=== PATIENT | female | born 1960 | race Caucasian/White ===

== ENCOUNTER 2020-08-26 08:14 | Day surgery (SDC) | payer BC ==
[~2020-08-26] VITALS: Ht 167.6 cm; Wt 80.0 kg
[~2020-08-26 08:14] MED LIST: AFLURIA QU IM; ALTACE5 MG PO; LABETALOL HCL100 MG PO
--- NOTE | 2020-08-26 10:08 | NUR ---
08/26/20 Christophe8 [place] Martinez 1002 PATIENT ARRIVES TO PACU AWAKE BUT DROWSY. DENIES PAIN OR NAUSEA. RESP EVEN AND UNLABORED. ROOM AIR SATS >95%. PASSING GAS.
--- NOTE | 2020-08-29 08:12 | OR ---
[facility] [address] [place], [place] [address] Signed DATE OF OPERATION: 08/26/2020 SURGEON: Tomas Israel MD PREOPERATIVE DIAGNOSIS: Colon surveillance. POSTOPERATIVE DIAGNOSIS: Polyps x3. PROCEDURES: Total colonoscopy to cecum with cold snare polypectomy x1 and cold morcellation polypectomy x2. ANESTHESIA: Intravenous sedation, fentanyl 100 mcg and Versed 5 mg. INDICATIONS: This 59-year-old white woman is a patient Dr. Spann and known to me from the past. She had colonoscopy by me in 2008, which was normal. She is symptom-free and has no family history of colon cancer. She is admitted to undergo surveillance colonoscopy, understand the risks of bleeding, infection, and perforation. FINDINGS: The prep was good. Complete colonoscopy was undertaken of the cecum without question. She had a small polyp of the right colon one of the transverse and a moderate-sized slightly pedunculated polyp of the sigmoid. All were excised completely. There were no other findings of concern. DESCRIPTION OF PROCEDURE: The patient was brought to the endoscopy suite and placed in lateral decubitus position given intravenous sedation to the point of slurred speech and nystagmus. Digital rectal examination was normal. An Olympus video colonoscope was passed into the rectum and manipulated throughout the colon, ultimately intubating the cecum itself. Careful withdrawal of scope was undertaken showing a small sessile polyp of the proximal ascending colon. This was excised with cold morcellation technique. Further withdrawal of the scope, identified a polyp in the mid transverse colon, which was rather small and subtle. It too was excised with cold morcellation technique completely. Further withdrawal of scope showed Electronically Signed By: TOMAS ISRAEL MD 08/29/20 0812 PATIENT NAME: OTTO GOLDMAN OPERATIVE REPORT DATE OF : 58 REPORT #: [id number] PHYSICIAN: TOMAS ISRAEL MD PCP: LEONEL SPANN DO REPORT IS CONFIDENTIAL AND NOT TO BE RELEASED WITHOUT AUTHORIZATION [facility] [address] [place], [place] [address] Signed no abnormality until approximately 15 cm from the anal verge, where a more obvious somewhat pedunculated polyp was noted at about 15 cm. This was excised with cold snare technique without problem. Additional biopsies were taken of the base of the polyp. There was no untoward bleeding. Further withdrawal of retroflexed view, which was accomplished without problem. Retroflexed view was normal. The scope was removed. The patient was taken to the recovery room in good condition. CONCLUDING DIAGNOSIS: Polyps x3. PLAN: Recommend repeat colonoscopy in 3 years or sooner if symptoms should occur. She will return to the ongoing care of Dr. Spann. I will review her pathology report to assure no adverse findings on the pathology examination. MD DECLAN Lewis/MARYANN /[id number] Copies: ~ Electronically Signed By: TOMAS ISRAEL MD 08/29/20 0812 PATIENT NAME: OTTO GOLDMAN OPERATIVE REPORT DATE OF : 58 REPORT #: [id number] PHYSICIAN: TOMAS ISRAEL MD PCP: LEONEL SPANN DO REPORT IS CONFIDENTIAL AND NOT TO BE RELEASED WITHOUT AUTHORIZATION
--- NOTE | 2020-08-30 17:17 | PATH ---
[facility] [address] [place], [place] [address] Signed SPECIMEN(S): A ASCENDING POLYP SPECIMEN(S): B TRANSVERSE POLYP SPECIMEN(S): C COLON POLYP AT 15 CM SPECIMEN SOURCE: A. ASCENDING POLYP B. TRANSVERSE POLYP C. COLON POLYP AT 15 CM CLINICAL HISTORY: Preop: Screening. Postop: Polyps x3. MICROSCOPIC DESCRIPTION: Histologic sections of all submitted blocks are examined by light microscopy. These findings, together with the gross examination, support the pathologic diagnosis. FINAL PATHOLOGIC DIAGNOSIS: A. Colon, ascending, polyp, polypectomy: - Fragments of hyperplastic polyp. - Negative for dysplasia or malignancy. B. Colon, transverse, polyp, polypectomy: - Fragments of hyperplastic polyp. - Negative for dysplasia or malignancy. C. Colon, polyp at 15 cm, polypectomy: - Tubular adenoma. - Negative for high-grade dysplasia or malignancy. NAL:cml:C2NR GROSS DESCRIPTION: Three specimens are received in three containers, labeled "Donna Goldman." A. The specimen, labeled "Erick Goldmanet, #1," and designated on the requisition "ascending polyp," is received in formalin and consists of three calvert soft tissue fragment(s) that measure 0.1-0.3 cm in greatest dimension. The specimen is entirely submitted in cassette (A1). B. The specimen, labeled "Erick Goldmanet, #2," and designated on the requisition "transverse polyp," is received in formalin and consists of two calvert soft tissue fragment(s) that measure 0.3 and 0.4 cm in greatest dimension. The specimen is entirely submitted in cassette (B1). C. The specimen, labeled "Souleymane Donna, #3," and designated on the requisition "colon polyp at 15 cm," is received in formalin and consists of one calvert soft tissue fragment that measures 0.5 cm in PATIENT NAME: DONNA GOLDMAN PATHOLOGY DATE OF : 58 REPORT #: [id number] PHYSICIAN: TONYA PATHOLOGY PCP: LEOENL SPANN DO REPORT IS CONFIDENTIAL AND NOT TO BE RELEASED WITHOUT AUTHORIZATION [facility] [address] [place], [place] [address] Signed greatest dimension. The specimen is entirely submitted in cassette (C1). FB (under the direct supervision of a pathologist) The Gross Description was prepared using a voice recognition system. The report was reviewed for accuracy; however, sound-alike word errors, addition and/or deletions may occur. If there is any question about this report, please contact Client Services. PERFORMING LABORATORY: The technical component was performed by [employer], [address] [place] [id number] (Production Repairer: Jing Frias MD; CLIA# [id number]). Professional interpretation was performed by [employer] [facility], [address] [address] (CLIA# [id number]). Diagnostician: Roselia Owens MD Pathologist Electronically Signed 08/30/2020 Copies: ~ PATIENT NAME: DONNA GOLDMAN PATHOLOGY DATE OF : 58 REPORT #: [id number] PHYSICIAN: TONYA PATHOLOGY PCP: LEONEL SPANN DO REPORT IS CONFIDENTIAL AND NOT TO BE RELEASED WITHOUT AUTHORIZATION
== END 2020-08-26 10:55 | disposition home or self-care (01) ==
LOC: OPS 08:14 → DS 08:17 → OPS 09:30
PROVIDERS: ATTEND Surgery
PROC: 0DBL8ZX Excision of Transverse Colon, Via Natural or Artificial Opening Endoscopic, Diagnostic (ICD-10-PCS; 2020-08-26)
PROC: 0DBE8ZX Excision of Large Intestine, Via Natural or Artificial Opening Endoscopic, Diagnostic (ICD-10-PCS; 2020-08-26)
PROC: 0DBK8ZX Excision of Ascending Colon, Via Natural or Artificial Opening Endoscopic, Diagnostic (ICD-10-PCS; principal; 2020-08-26 09:30)
DX: Z12.11 Encounter for screening for malignant neoplasm of colon (principal); D12.6 Benign neoplasm of colon, unspecified; K63.5 Polyp of colon; I10 Essential (primary) hypertension; L82.1 Other seborrheic keratosis; Z78.0 Asymptomatic menopausal state; Z79.899 Other long term (current) drug therapy
CPT/HCPCS: 99153; G0500; J2250; J2405; J3010; J7121

== ENCOUNTER 2020-12-22 07:00 | Day surgery (SDC) | payer BC ==
[~2020-12-22] VITALS: Ht 172.7 cm; Wt 79.5 kg
--- NOTE | 2020-12-22 09:57 | NUR ---
12/22/20 0957 Melanie Spicer 0949- PT TO PACU IN SF POSITION. EYES OPEN AND DROWSY. BREATHING EASY AND UNLABORED. SPO2 >95% ON 6 L O2 VIA SIMPLE MASK. PT DENIES PAIN OR NAUSEA. 0956- PT REMAINS AWAKE, ASKING QUESTIONS APPROPRIATELY. BREATHING EASY AND UNLABORED. SPO2 >95% ON 6 L O2 VIA SIMPLE MASK. O2 TITRATED DOWN TO ROOM AIR.
[2020-12-22] MEDS ORDERED: IBUPROFEN600 MG PO (10:06)
[2020-12-22] MEDS ORDERED: ACETAMINOPHEN500 MG PO (10:06)
[2020-12-22] MEDS ORDERED: OXYCODON-ACETA1 EAC2 PO (10:06)
--- NOTE | 2020-12-22 11:42 | OR ---
[facility] [address] [place], [place] [address] Signed DATE OF OPERATION: 12/22/2020 SURGEON: Tomas Israel MD PREOPERATIVE DIAGNOSES: 1. 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 2. Pigmented lesion on upper posterior midline torso of uncertain behavior. POSTOPERATIVE DIAGNOSES: 1. 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 2. Pigmented lesion on upper posterior midline torso of uncertain behavior. PROCEDURES: 1. Excision of upper posterior thorax skin lesion 3.6 cm excision size. 2. Excision of left lower extremity melanoma in situ 6.0 cm excision size. ANESTHESIA: LMAC; Maurice Gibson CRNA, and local 0.25% Marcaine with epinephrine 10 mL. INDICATION: This 60-year-old white woman is a patient of Srinath Spann. She had three small benign nodules of her scalp that were long-standing and increasing in size and somewhat bothersome to her. They were excised without problem and found to be benign intradermal melanocytic nevus. Her daughter, who is a newly graduated nurse had noticed a blandly pigmented lesion of her left lower thigh in the lateral aspect superior and lateral to the patella. Incisional biopsy was taken concurrently to one of the scalp lesion excision episodes in the office and found to have melanoma in situ. The patient has no family history of melanoma and no prior history of cancer of any sort. She has noticed also a blandly pigmented lesion in the interscapular area posteriorly in the thorax. She is admitted at this time to undergo definitive excision of the left thigh melanoma in situ as well as the posterior thoracic pigmented skin lesion of unknown etiology. She understands the risks of bleeding, infection, cosmetic deformity, and need for additional treatment should a deeper depth of the lesion be identified on melanoma in situ. Understands this, she wished to proceed. FINDINGS: Operation was taken in the right lateral position. Deep intravenous sedation was used and local anesthetic administered with good effect. Excision of the posterior thoracic and skin lesion was excised full thickness with accompanying associated fat, measured Electronically Signed By: TOMAS ISRAEL MD 12/22/20 1142 PATIENT NAME: OTTO GOLDMAN OPERATIVE REPORT DATE OF : 58 REPORT #: [id number] PHYSICIAN: TOMAS ISRAEL MD PCP: SRINATH SPANN DO REPORT IS CONFIDENTIAL AND NOT TO BE RELEASED WITHOUT AUTHORIZATION [facility] [address] [place], [place] [address] Signed 3.5 cm in length. It was closed in layers. The thigh lesion, proven as melanoma in situ was widely excised and deeply down to the investing fascia of the muscle compartment with a 1.5 cm margin throughout. The length of the excision was 6 cm in total. Closure was without problem. DESCRIPTION OF PROCEDURE: The patient was brought to the operating room and given intravenous sedation and positioned in the right lateral decubitus position (left side up). The left leg lesion with melanoma in situ was prepared with chlorhexidine solution as was the interscapular area. Both areas were sterilely draped. Attention was turned towards the unknown lesion first. Local anesthetic of 0.25% Marcaine with epinephrine injected locally in a field block configuration. An elliptical excision was undertaken vertically oriented based on skin line tension. Dissection was carried through the deep and thick dermis down to subcutaneous fat and widely excised. Electrocautery was used for hemostasis. The wound was closed in layers with interrupted 2-0 Vicryl and a running subcuticular 3-0 Vicryl, Steri-Strips were applied as was the Acticoat dressing. Attention was turned towards the lesion of the left thigh. Again, a blunt field block was undertaken with Marcaine anesthetic and measured margin of at least 2 cm from any pigmented area designated and excised at the 1.5 cm level. This was taken down to the muscular fascia compartment full-thickness with accompanying subcutaneous fat. Electrocautery was used for hemostasis. The inferior flap area was freed and the edges were easily approximated with interrupted 2-0 Vicryl in deep dermal layer and subcutaneous layer in a running subcuticular 3-0 Vicryl for the skin. Steri-Strips were applied as was the Acticoat dressing. The specimen was marked with silk sutures for orientation. She was returned to the supine position, allowed to emerge from sedation and taken to the recovery room in good condition. BLOOD LOSS: Minimal. COMPLICATIONS: None. Tomas Israel MD Electronically Signed By: TOMAS ISRAEL MD 12/22/20 1142 PATIENT NAME: OTTO GOLDMAN OPERATIVE REPORT DATE OF : 58 REPORT #: [id number] PHYSICIAN: TOMAS ISRAEL MD PCP: SRINATH SPANN DO REPORT IS CONFIDENTIAL AND NOT TO BE RELEASED WITHOUT AUTHORIZATION [address] [address] Signed /MARYANN /[id number] cc: Srinath Spann DO Copies: SRINATH SPANN DO ~ Electronically Signed By: TOMAS ISRAEL MD 12/22/20 1142 PATIENT NAME: OTTO GOLDMAN OPERATIVE REPORT DATE OF : 58 REPORT #: [id number] PHYSICIAN: TOMAS ISRAEL MD PCP: SRINATH SPANN DO REPORT IS CONFIDENTIAL AND NOT TO BE RELEASED WITHOUT AUTHORIZATION
--- NOTE | 2020-12-23 15:57 | PATH ---
[facility] [address] [place], [place] [address] Signed SPECIMEN(S): A POSTERIOR THORAX SPECIMEN(S): B SUPRAPATELLAR SPECIMEN SOURCE: A. POSTERIOR THORAX B. SUPRAPATELLAR CLINICAL HISTORY: Leg left and back skin lesion FINAL PATHOLOGIC DIAGNOSIS: A. Skin, posterior thorax, excision: - Seborrheic keratosis. B. Skin, suprapatellar, excision: - Melanoma in situ, excised. - Distance from closest margin: 4 mm, 3 o'clock margin (see gross description). - Biopsy site changes. BRP:cml:C1NR MICROSCOPIC EXAMINATION: Histologic sections of all submitted blocks are examined by light microscopy. These findings, together with the gross examination, support the pathologic diagnosis. GROSS DESCRIPTION: Two specimens are received in two containers, labeled "JJ." A. The specimen, labeled "JJ, posterior thorax, pigmented skin lesion," is received in formalin and consists of one unoriented skin ellipse that measures 3.0 x 1.7 x 1.0 cm. The skin surface shows brown-calvert, irregular colored and irregular shaped papule that measures 1.2 x 1.0 cm. The papule is 0.3 cm from the nearest surgical margin. Specimen is inked and serial section. Specimen is entirely and the potential is submitted in three cassettes (A1-A3). B. The specimen, labeled "JJ, melanoma in situ, suprapatellar area," is received in formalin and consists of skin ellipse that measures 5.0 x 2.5 x 1.5 cm. The skin surface shows irregular shaped, irregular colored brown-calvert macule that measures 1.6 x 1.1 cm. The macule is 0.5 cm from the nearest surgical margin. Specimen is oriented: Short stitch-superior, long stitch-anterior. They are PATIENT NAME: OTTO GOLDMAN PATHOLOGY DATE OF : 58 REPORT #: [id number] PHYSICIAN: TONYA PATHOLOGY PCP: LEONEL SPANN DO REPORT IS CONFIDENTIAL AND NOT TO BE RELEASED WITHOUT AUTHORIZATION [facility] [address] [place], [place] [address] Signed arbitrarily designated as: Long stitch-12 o'clock, short stitch-3 o'clock. Specimen is inked from 12 to 6 o'clock-blue, six to 12 o'clock-red. Specimen is serial sectioned and upon sectioning macule is less than 0.1 cm in thickness. Specimen is sequentially and entirely submitted from 12 o'clock to 6 o'clock in nine cassettes. Cassette summary: (B1-B5) 12 o'clock half (B6-B9) 6 o'clock half JS (under the direct supervision of a pathologist) The Gross Description was prepared using a voice recognition system. The report was reviewed for accuracy; however, sound-alike word errors, addition and/or deletions may occur. If there is any question about this report, please contact Client Services. PERFORMING LABORATORY: The technical component was performed by [employer], [address] [place] [phone] (Event Marketing Coordinator: Jing Frias MD; CLIA# [id number]). Professional interpretation was performed by [employer], [facility], [address] [place] [address] (CLIA# [id number]). Diagnostician: Narciso Manriquez MD Pathologist Electronically Signed 12/23/2020 Copies: ~ PATIENT NAME: OTTO GOLDMAN PATHOLOGY DATE OF : 58 REPORT #: [id number] PHYSICIAN: TONYA VELÁSQUEZ PCP: LEONEL SPANN DO REPORT IS CONFIDENTIAL AND NOT TO BE RELEASED WITHOUT AUTHORIZATION
== END 2020-12-22 10:30 | disposition home or self-care (01) ==
LOC: DS 07:00 → OPS 07:00 → DS 08:15 → OPS 10:30
PROVIDERS: ATTEND Surgery
PROC: 0HQ6XZZ Repair Back Skin, External Approach (ICD-10-PCS; 2020-12-22)
PROC: 0HBJXZZ Excision of Left Upper Leg Skin, External Approach (ICD-10-PCS; 2020-12-22)
PROC: 0HQJXZZ Repair Left Upper Leg Skin, External Approach (ICD-10-PCS; 2020-12-22)
PROC: 0HB6XZZ Excision of Back Skin, External Approach (ICD-10-PCS; principal; 2020-12-22 08:15)
DX: D03.72 Melanoma in situ of left lower limb, including hip (principal); L82.1 Other seborrheic keratosis; D23.9 Other benign neoplasm of skin, unspecified; I10 Essential (primary) hypertension; Z78.0 Asymptomatic menopausal state
CPT/HCPCS: 00400; J0690; J1100; J1885; J2001; J2405; J2704; J3010; J7121

== ENCOUNTER 2021-02-15 06:00 | Day surgery (SDC) | payer BC ==
[~2021-02-15] VITALS: Ht 172.7 cm; Wt 79.5 kg
[~2021-02-15 06:00] MED LIST changes: +ACETAMINOPHEN500 MG PO; +IBUPROFEN600 MG PO; +OXYCODON-ACETA1 EAC2 PO
--- NOTE | 2021-02-15 08:50 | NUR ---
PT TAKEN TO SURGERY, EDILMA REMAINED IN RM. ALL QUESTIONS ASKED ANSWERED GAVE BLESSING, WILL FOLLOW
--- NOTE | 2021-02-15 09:15 | NUR ---
02/15/21 0915 KELLY GONZALEZ - 0906-PATIENT ARRIVED TO PACU, ORAL AIRWAY IN PLACE. PATIENT NOT AROUSABLE , DOES NOT RESPOND TO VERBAL STIMULI. STERI STRIPS AND BANDAIDS CLEAN, DRY AND INTACT. PATIENT ON 6L O2 AT 100%. HULL PATENT AND DRAINING.
--- NOTE | 2021-02-15 09:59 | NUR ---
PT IS BACK TO DS FROM PACU. SHE IS REPORTING MINIMAL PAIN, STATING THAT THE WARMTH FROM THE PEDRO HUGGER IS HELPING WITH THE DISCOMFORT. SHE IS SLIGHTLY TEARFUL, IS AT THE BEDSIDE. CALL LIGHT WITHIN REACH. WATER ON BEDSIDE TABLE, PT IS EDUCATED TO START WITH SMALL SIPS OF WATER WHEN READY. NO ADDITIONAL NEEDS AT THIS TIME.
[2021-02-15] MEDS ORDERED: PERCOCET 5-3251 EACH PO (10:17)
[2021-02-15] MEDS ORDERED: IBUPROFEN800 MG PO (10:18)
[2021-02-15] MEDS ORDERED: ONDANSETRON ODT8 MG PO (10:18)
--- NOTE | 2021-02-15 11:33 | NUR ---
LE 1115: PT REPORTS FEELING BETTER, BUT STILL HAVING SOME PAIN/DISCOMFORT IN HER ABDOMEN. SHE IS EDUCATED THAT PART OF THAT DISCOMFORT IS THE HULL AND THE GAS FROM SURGERY. SHE IS AGREEABLE TO GETTING UP TO SEE IF SHE CAN STAND SO THAT THE HULL CAN BE REMOVED. LE 1130: PT TOLERATES STANDING WELL. THE HULL BALLOON IS EMPTIED OF 9MLS OF NS. THE HULL IS REMOVED WITHOUT COMPLICATION. THE PT REPORTS A SIGNIFICANT IMPROVEMENT IN HER PAIN/DISCOMFORT WHEN SHE LAYS BACK DOWN WITHOUT THE CATHETER IS IN PLACE. THERE IS A TOTAL OF 600MLS OF URINE IN THE HULL BAG.
--- NOTE | 2021-02-15 12:17 | NUR ---
PT IS DOING WELL, TOLERATING WATER AND JELLO. CALL LIGHT WITHIN REACH. DENIES THE NEED TO PEE AT THIS TIME. SHE IS EDUCATED THAT THE ONLY CRITERIA SHE HAS LEFT TO MEET IS PEEING.
--- NOTE | 2021-02-15 14:37 | NUR ---
LE 1415: PT TURNS BACK HOE MACHINE OPERATOR LIGHT. SHE WOULD LIKE TO GET UP AND USE THE RESTROOM. SHE IS ABLE TO AMBULATE HERSELF TO THE BATHROOM WITHOUT ISSUE. SHE IS ABLE TO VOID 250MLS. SHE INDICATES THAT SHE WOULD LIKE TO GO HOME AT THIS TIME. SHE HAS MET ALL DC CRITERIA. SHE IS EDUCATED ON HOW TO BEST DRESS HERSELF AND TO OPEN THE CURTAIN WHEN SHE IS READY. LE 1425: PT IS GIVEN VERBAL DC INSTRUCTIONS WITH PRESENT. THEY BOTH VERBALIZE UNDERSTANDING. QUESTIONS ARE ASKED AND ANSWERED. PT IS TAKEN TO PERSONAL CAR VIA , SHE IS ABLE TO TRANSFER HERSELF FROM WC TO CAR.
--- NOTE | 2021-02-15 17:26 | EKG ---
[facility] [address] [facility] [place], [place] [address] Signed Normal sinus rhythm Normal ECG No previous ECGs available Confirmed by POOJA GÓMEZ DO ([id number]) on 02/15/2021 5:26:10 PM Electronically Signed By: POOJA GÓMEZ DO 02/15/21 1726 PATIENT NAME: OTTO GOLDMAN Electrocardiogram DATE OF : 58 PHYSICIAN: POOJA GÓMEZ DO REPORT #: [id number] REPORT IS CONFIDENTIAL AND NOT TO BE RELEASED WITHOUT AUTHORIZATION
--- NOTE | 2021-02-16 16:53 | PATH ---
[facility] [address] [place], [place] [address] Signed SPECIMEN(S): A UTERUS, CERVIX, TUBES AND OVARIES SPECIMEN SOURCE: A. UTERUS, CERVIX, TUBES AND OVARIES CLINICAL HISTORY: High risk breast CA; family history of ovarian CA, family history of breast CA, self history of melanoma. TLH, BSO, cystoscopy. FINAL PATHOLOGIC DIAGNOSIS: Uterus, cervix, tubes and ovaries: - Atrophic endometrium with superficial endometrial adenomyosis (inner one-third of myometrium). - Benign endocervix and ectocervix. - Benign bilateral oviducts with prominent copra albicans and incidental benign serous inclusion cysts. - Bilateral benign oviducts. JVR:raquelh:C2NR MICROSCOPIC EXAMINATION: Histologic sections of all submitted blocks are examined by light microscopy. These findings, together with the gross examination, support the pathologic diagnosis. GROSS DESCRIPTION: The specimen, labeled "JJ, uterus, cervix, bilateral fallopian tubes and ovaries," is received in formalin and consists of uterus and cervix with attached bilateral fallopian tubes and ovaries. The uterus measures 3.3 x 2.2 x 5.5 cm. Serosal surface is pink-calvert, smooth. The trimmed uterus weighs 41 grams. The ectocervix is pink-calvert, smooth and measures 3.0 x 3.1 cm. Sectioning through the cervix reveals pink-calvert, homogenous tissue. The endometrial cavity measures 2.0 x 1.4 cm. It is lined with pink-calvert, smooth endometrium. Sectioning through the myometrium reveals pink-calvert, homogenous tissue. No masses or abnormalities are grossly identified. The myometrium measures 1.1 cm in thickness. The endometrium measures less than 0.1 cm in thickness. Both fallopian tubes show fimbria and violaceous and smooth serosa. The right ovary measures 2.1 x 1.0 x 1.0 cm. Serosal surface is yellow-calvert, smooth and folded. Sectioning through the ovary PATIENT NAME: OTTO GOLDMAN PATHOLOGY DATE OF : 58 REPORT #: [id number] PHYSICIAN: TONYA VELÁSQUEZ PCP: LEONEL SPANN DO REPORT IS CONFIDENTIAL AND NOT TO BE RELEASED WITHOUT AUTHORIZATION [facility] [address] [place], [place] [address] Signed reveals a cyst that measures 0.5 cm in greatest dimension. The cyst is filled with a clear fluid. The right fallopian tube measures 5.5 cm in length and 0.5 cm in diameter. The left ovary measures 2.0 x 0.8 x 0.7 cm. Serosal surface is yellow-calvert, smooth with areas of folds. Sectioning through the ovary is grossly unremarkable. The left fallopian tube measures 4.5 cm in length and 0.4 cm in diameter. Sectioning through both fallopian tubes is grossly unremarkable. Cassette Summary: (A1) Cervix, artists' booking representative sections, posterior inked (A2) Endomyometrium, artists' booking representative sections (A3) Right ovary, artists' booking representative sections (A4) Right fallopian tube, artists' booking representative sections (A5) Left ovary, artists' booking representative sections (A6) Left fallopian tube, artists' booking representative sections JS (under the direct supervision of a pathologist) The Gross Description was prepared using a voice recognition system. The report was reviewed for accuracy; however, sound-alike word errors, addition and/or deletions may occur. If there is any question about this report, please contact Client Services. PERFORMING LABORATORY: The technical component was performed by [employer], [address] [place] [id number] (Project Construction Assistant Manager: Jing Frias MD; CLIA# [id number]). Professional interpretation was performed by [employer], [facility], [address] [place] [address]. Diagnostician: Demarcus Gage MD Pathologist Electronically Signed 02/16/2021 Copies: ~ PATIENT NAME: OTTO GOLDMAN PATHOLOGY DATE OF : 58 REPORT #: [id number] PHYSICIAN: [email or web address] PATH[facility]Y PCP: LEONEL SPANN DO REPORT IS CONFIDENTIAL AND NOT TO BE RELEASED WITHOUT AUTHORIZATION
--- NOTE | 2021-02-16 20:09 | OR ---
[facility] [address], [place] [address] Signed DATE OF OPERATION: 02/15/2021 SURGEON: Melani Meadows MD DIVINE HEALER: Shady Rosado MD PREOPERATIVE DIAGNOSIS: Family history of ovarian cancer. POSTOPERATIVE DIAGNOSIS: Family history of ovarian cancer. PROCEDURE: Total laparoscopic hysterectomy, bilateral salpingo-oophorectomy, cystoscopy. ANESTHESIA: General ET. ESTIMATED BLOOD LOSS: 25 mL. DRAINS: Palm catheter. INDICATIONS AND FINDINGS: The patient is a 60-year-old female 3, para 2, SAB 1, who has a strong family history of ovarian and breast cancer. She has also been recently diagnosed with an early stage melanoma as well as colon polyps and she is quite concerned about her risk for cancer. At this point, she desires risk reducing hysterectomy with removal of her ovaries. At the time of surgery, exam under anesthesia was normal. On laparoscopy, the pelvis was normal. There were a few adhesions of the cecal area to the anterior peritoneum, though no other pathology noted. DESCRIPTION OF PROCEDURE: The patient was prepped and draped in the dorsal lithotomy position. A weighted speculum was placed and the anterior lip of the cervix was visualized and grasped with single-tooth tenaculum. The uterus was sounded to 7 cm. The endocervical canal was then dilated and a VCare cannula inserted and the balloon inflated at the fundus. Following this, the tenaculum and weighted speculum removed. The cup was fitted over Electronically Signed By: MELANI MEADOWS MD 02/16/212008 PATIENT NAME: OTTO GOLDMAN OPERATIVE REPORT DATE OF : 58 REPORT #: [id number] PHYSICIAN: MELANI MEADOWS MD PCP: LEONEL SPANN DO REPORT IS CONFIDENTIAL AND NOT TO BE RELEASED WITHOUT AUTHORIZATION [facility] [address], [place] [address] Signed the cervix and a locking cap was fitted into place as well. Attention was then directed above. The infraumbilical area was injected with 0.5% Marcaine plain. An incision was made with a knife and each layer was serially elevated and incised until the fascia was opened and identified. Stay sutures of 0-Vicryl were placed. The peritoneum was opened bluntly. The Dalton was placed and the balloon inflated. Placement of the scope confirmed proper positioning. CO2 was then introduced in the abdomen and the abdomen was appropriately distended. The secondary ports were placed. These were placed far laterally on each side slightly below the level of the umbilicus. Each of these areas were transilluminated, injected with the Marcaine, incision made with a knife and the trocars placed under direct vision. The left-sided port was a 5 mm port and the right was a Veress needle followed by the expanding port. Following this, the decision was made to proceed with the planned procedure given the findings. The Ligasure [place] device was used. The patient's left infundibulopelvic ligament was then grasped and serially coagulated and divided. Following this, an Endoloop of 0 prolene was placed for added assurance of hemostasis. Following this, the tube was then removed by serially coagulating and dividing the broad ligament. As the fundus was approached, the round ligament was coagulated and divided. This allowed for entry in to the peritoneal space. The anterior leaf of the peritoneum was incised allowing for a partial bladder flap. The posterior leaf was also taken down in the same manner. The uterine vessels were then skeletonized and coagulated multiple times and divided. Following this, attention was directed to the patient's right side. Again, the infundibulopelvic ligament was identified and coagulated and divided multiple times and at this point, the Endoloop using the 0 Prolene was placed to ensure further hemostasis. The tube was excised in the same manner down to the level of the round ligament. The round ligament was coagulated and divided and the anterior leaf of the peritoneum incised anteriorly as well as posteriorly. The uterine vessels were skeletonized and coagulated multiple times and divided. The remaining peritoneal dissection was done both anteriorly and posteriorly. Following this, further dissection was done such that the cuff could be easily felt both posteriorly and anteriorly. Attention was redirected to the patient's left side for a little bit more dissection around the uterine vessel areas. Following this, the specimen was ready to be removed from the cuff. The Sonicision device was then used to separate the specimen. It was begun posteriorly and wrapped around the left side anteriorly and then again posteriorly and wrapped around the right side to anterior. Following this, the specimen was removed vaginally intact. A wet lap tape was placed into the vagina to allow for reaccumulation of the pneumoperitoneum. Following this, attention was redirected above. The abdomen was copiously irrigated and inspected and there was some bleeding points near the patient's right uterine vessel area. These were taken care with the LigaSure [place] device. There was also some bleeding along the broad ligament areas just below the infundibulopelvic ligament division. Following this, the Endo Stitch was used to close the vaginal cuff. It was begun at the patient's right uterosacral ligament, taking care Electronically Signed By: MELANI MEADOWS MD 02/16/212008 PATIENT NAME: OTTO GOLDMAN OPERATIVE REPORT DATE OF : 58 REPORT #: [id number] PHYSICIAN: MELANI MEADOWS MD PCP: LEONEL SPANN DO REPORT IS CONFIDENTIAL AND NOT TO BE RELEASED WITHOUT AUTHORIZATION [facility] [address] [place] [id number] Signed to incorporate the vaginal mucosa both posteriorly and anteriorly and this was taken to the patient's left uterosacral ligament and both back to the center. Following this, there was no evidence of active bleeding but there was a large raw area. The decision was made to proceed with Tisseel. Tisseel was sprayed over the raw area where the pelvis and both infundibulopelvic ligaments to assure hemostasis. The instruments were then removed abdominally allowing as much CO2 to escape as possible. The fascial incision at the umbilicus was reidentified and closed with a running suture of 0 Vicryl. The stay sutures were tied across as well. The skin incisions were closed with subcuticular sutures of 3-0 Vicryl Rapide. Attention was then directed below. The pack was removed from the vagina. The Palm catheter was removed and the cystoscopy was begun. She had received IV fluorescein. The 30-degree scope was introduced and the bladder evaluated. There was no evidence of any sutures or any trauma to the bladder. Both ureteral orifices were easily identified and free egress of fluorescein stained urine was seen from each of the orifices. Following this, the bladder was drained and the cystoscopy complete. The Palm was replaced. The patient was then taken to the recovery room in good condition. All sponge and needle counts were correct. Melani Meadows MD PJW/MODL /[id number] cc: DO Shady Bauer MD Copies: LEONEL SPANN MICHAEL JOHN MD ~ Electronically Signed By: MELANI MEADOWS MD 02/16/21 2009 PATIENT NAME: OTTO GOLDMAN OPERATIVE REPORT DATE OF : 58 REPORT #: [id number] PHYSICIAN: MELANI MEADOWS MD PCP: LEONEL SPANN DO REPORT IS CONFIDENTIAL AND NOT TO BE RELEASED WITHOUT AUTHORIZATION
== END 2021-02-15 14:30 | disposition home or self-care (01) ==
LOC: DS 06:00
PROVIDERS: ATTEND Obstetrics & Gynecology
PROC: 0UT94ZZ Resection of Uterus, Percutaneous Endoscopic Approach (ICD-10-PCS; principal; 2021-02-15 06:45)
PROC: 0UT24ZZ Resection of Bilateral Ovaries, Percutaneous Endoscopic Approach (ICD-10-PCS; 2021-02-15 06:45)
PROC: 0UT74ZZ Resection of Bilateral Fallopian Tubes, Percutaneous Endoscopic Approach (ICD-10-PCS; 2021-02-15 06:45)
DX: Z40.02 Encounter for prophylactic removal of ovary(s) (principal); N80.0 Endometriosis of uterus; N83.202 Unspecified ovarian cyst, left side; N83.201 Unspecified ovarian cyst, right side; I10 Essential (primary) hypertension; Z88.8 Allergy status to other drugs, medicaments and biological substances; Z86.010 Personal history of colon polyps; Z80.41 Family history of malignant neoplasm of ovary; Z80.3 Family history of malignant neoplasm of breast
CPT/HCPCS: 00840; 93005; 93010; J0131; J0694; J1100; J1644; J1885; J2270; J2405; J2704; J2765; J3010; J3475; J7121